=== PATIENT | female | born 1990 | race Caucasian/White ===

== ENCOUNTER 2016-10-14 10:41 | Inpatient (IN) | payer OTHER, SELFPAY ==
[~2016-10-14] VITALS: Ht 170.2 cm; Wt 93.0 kg
[~2016-10-14 10:41] MED LIST: COLACE100 MG PO; HYDROCODON-ACE1 EAC4 PO; MOTRIN800 MG PO; PRENATAL PLUS I1 TAB PO
[2016-12-14] MEDS ORDERED: MOTRIN800 MG PO (08:45)
[2016-12-14] MEDS ORDERED: COLACE100 MG PO (08:46)
[2016-12-14] MEDS ORDERED: MORPHINE SULFAT15 MG PO (08:53)
== END 2016-12-14 09:38 | disposition short-term general hospital (02) | DRG 765 ==
LOC: LDRIP 10:41
PROVIDERS: ADMIT Physician Assistant
PROC: 10D00Z1 Extraction of Products of Conception, Low, Open Approach (ICD-10-PCS; principal; 2016-12-11)
PROC: 30233N1 Transfusion of Nonautologous Red Blood Cells into Peripheral Vein, Percutaneous Approach (ICD-10-PCS; 2016-12-13)
DX: O32.1XX0 Maternal care for breech presentation, not applicable or unspecified (principal); D62 Acute posthemorrhagic anemia; O36.63X0 Maternal care for excessive fetal growth, third trimester, not applicable or unspecified; Z3A.39 39 weeks gestation of pregnancy; Z37.0 Single live birth
CPT/HCPCS: A9150; J0131; J0690; J1885; J2270; J2405; J2590; J2765; J3010